=== PATIENT | female | born 1980 | race Caucasian/White ===

== ENCOUNTER 2017-06-23 10:11 | Emergency (ER) | payer SELFPAY ==
[~2017-06-23] VITALS: Ht 160 cm; Wt 90.0 kg
[~2017-06-23 10:11] MED LIST: CLIN1CAP6 PO; ZOFR4TAB3 PO
[2017-06-23 10:15] VITALS: BP 117/60; PULSE 94; RESP 15; TEMP 98.7; O2SAT 99
--- NOTE | 2017-06-27 07:49 | EL ---
cc: ЕКАТЕРИНА ROMERO MD DATE OF VISIT: 06/23/2017 DATE OF : 1980 CHIEF COMPLAINT Right middle finger swelling for four days. HISTORY OF PRESENT ILLNESS A 36-year-old female here with complaints of right middle finger infection and swelling since Tuesday. The patient states that there was some drainage coming out of her finger and some moderate to severe swelling. The swelling has significantly improved, but her finger continues to have some redness and swelling. She also reports some mild discomfort. The patient says she has been having some fevers intermittently here and there. Today she is afebrile. She has no other complaints at this time. PAST MEDICAL HISTORY Denies. ALLERGIES No known drug allergies. MEDICATION No reported meds. REVIEW OF SYSTEMS All systems reviewed and negative, except for right middle finger swelling and erythema along with intermittent fevers. VITAL SIGNS: Temperature 98.7, heart rate 94, respiratory rate 15, blood pressure 117/60, 02 sat 99%. PHYSICAL EXAMINATION GENERAL: The patient is AAO x 3, no acute distress, well-nourished, well-developed patient. SKIN: Warm and dry, no visible rashes or bruising. The right middle finger at the distal tip is edematous from the nailbed extending to the distal tip, slightly edematous, mild erythema without any significant fluid collection or fluctuance. There is a small opening with clear liquid draining. Capillary refill is normal. HEAD: Normocephalic, atraumatic. EYES: No scleral icterus. No injection or drainage. ENT: No nasal drainage noted. Mucous membranes are pink. Airway is patent. NECK: Supple. Trachea midline. No JVD. CARDIOVASCULAR: Regular rate and rhythm, S1, S2. RESPIRATORY: Breath sounds equal bilaterally. No accessory muscle use. No rhonchi, rales or wheezing. GASTROINTESTINAL: Abdomen soft, nontender, nondistended. EXTREMITIES: No cyanosis. There is mild edema to the right middle finger at the distal end. Please refer to skin exam. All digits move freely. BACK: No obvious deformity. NEURO: Grossly intact. PSYCHE: AAO x 3. Normal affect. MEDICAL DECISION MAKING Medical screen exam was completed: Yes. Emergency medical condition: Yes. Medical record reviewed: Yes. DIFFERENTIAL DIAGNOSIS Paronychia, cellulitis, less likely fracture, less likely sepsis. NARRATIVE COURSE A 36-year-old female here with complaints of right middle finger swelling for the past several days. On examination the patient appears to have a mild paronychia of her right middle finger. I will provide her with a course of antibiotics. I advised her to try warm compresses and explained if the area starts to develop a head, that she can return for incision and drainage. I explained to her at this time there is no fluid collection for drainage here in the emergency department. The patient was very understanding. I advised followup with her primary care provider. We discussed the signs of worsening infection and when to return to the emergency department. I advised her if she develops any fever, increased redness, increased swelling, drainage or streaking to return to the nearest emergency department. DIAGNOSIS Right middle finger paronychia. MEDICATIONS UPON DISCHARGE Bactrim DS one tab p.o. b.i.d. for 7 days. DISCHARGE DISPOSITION Home. CONDITION Stable. JEREMIAH Schneider /11:42 AM /7:42 AM
== END 2017-06-23 21:53 | disposition home or self-care (01) ==
LOC: NED 10:11
DX: L03.011 Cellulitis of right finger (principal)
CPT/HCPCS: 99282

== ENCOUNTER 2018-03-23 10:00 | Emergency (ER) | payer SELFPAY ==
[~2018-03-23] VITALS: Ht 160 cm; Wt 84.0 kg
[2018-03-23 10:05] VITALS: BP 120/73; PULSE 88; RESP 18; TEMP 98.2; O2SAT 98
[2018-03-23] MEDS ORDERED: ZITHTAB PO (10:26)
[2018-03-23] MEDS ORDERED: BENZ1CAP51 PO (10:26)
--- NOTE | 2018-03-23 10:27 | PD ---
HPI Chief Complaint: Cold / Flu Symptoms Time Seen by Provider: 10:16 Travel History International Travel<30 days: No Contact w/Intl Traveler<30days: No Traveled to known affect area: No History of Present Illness HPI 37-year-old female presents to the emergency department for evaluation of cough , congestion, body aches for 1 week. Patient denies any fevers or chills. No chest pain. She has no chronic medical problems and takes no prescribed medications. She reports vomiting 2 days ago, but none since. No abdominal pain. No diarrhea. No exacerbating or alleviating factors. She has tried Mucinex and DayQuil [id number] without improvement. Mild severity. PFSH Past Medical History Asthma: Yes Depression: Yes Cancer: No Cardiovascular Problems: No Cerebrovascular Accident: No Diminished Hearing: No Endocrine: No Genitourinary: No Headaches: Yes Immune Disorder: No Musculoskeletal: No Neurologic: No Psychiatric: No Reproductive: Yes (ENDOMETRIOSIS) Respiratory: Yes Triglycerides - High: No Ulcer: Yes ?: Not LMP: 03/18/18 Past Surgical History AICD: No Arteriovenous Shunt: No Insulin Pump: No Joint Replacement: No Pacemaker: No Social History Alcohol Use: No Tobacco Use: No Substance Use: No Allergies-Medications (Allergen,Severity, Reaction): Coded Allergies: No Known Allergies (Unverified Adverse Reaction, Unknown, 03/23/18) Reported Meds & Prescriptions Reported Meds & Active Scripts Active No Active Prescriptions or Reported Medications Review of Systems Except as stated in HPI: all other systems reviewed are Neg Physical Exam Narrative GENERAL: Well-nourished, well-developed female patient, afebrile. SKIN: Focused skin assessment warm/dry. HEAD: Normocephalic. Atraumatic ENT: Mucosa pink and moist. No erythema or exudates. No uvular edema. No uvular , palatal, or tonsillar deviation. Airway patent. Nasal turbinates appear normal without nasal blood, purulent drainage or septal hematoma. Bilateral tympanic membranes clear without erythema or perforation. EYES: No scleral icterus. No injection or drainage. NECK: Supple, trachea midline. No JVD or lymphadenopathy. CARDIOVASCULAR: Regular rate and rhythm without murmurs, gallops, or rubs. RESPIRATORY: Breath sounds equal bilaterally. No accessory muscle use. Lung sounds clear to auscultation. Dry cough noted GASTROINTESTINAL: Abdomen soft, non-tender, nondistended. MUSCULOSKELETAL: No cyanosis, or edema. BACK: Nontender without obvious deformity. No CVA tenderness. Data Data Last Documented VS Vital Signs Date Time Temp Pulse Resp B/P (MAP) Pulse Ox O2 Delivery O2 Flow Rate FiO2 03/23/18 10:05 98.2 88 18 120/73 (89) 98 MDM Medical Decision Making Medical Screen Exam Complete: Yes Emergency Medical Condition: Yes Medical Record Reviewed: Yes Differential Diagnosis URI versus sinusitis versus pneumonia Narrative Course 37-year-old female presents to the emergency department for evaluation of cold symptoms for 1 week. She states this is her fourth time having any symptoms. Vital signs are reassuring. Patient will be discharged prescription for azithromycin and benzonatate capsules. She is encouraged to follow-up with her primary care physician. The patient was discharged in stable condition with instructions, including return instructions and follow up instructions. Diagnosis Primary Impression: Upper respiratory infection Qualified Codes: J06.9 - Acute upper respiratory infection, unspecified Referrals: Primary Care Physician call for appointment Patient Instructions: General Instructions, Upper Respiratory Infection (ED) Departure Forms: Tests/Procedures, Work Release Enter return to work date: March 25, 2018 Additional Instructions: Take antibiotic as directed until gone. Take benzonatate capsules as directed as needed for cough. Follow-up with a primary care physician. Return to the emergency department for any acute worsening of symptoms. Med/Other Pt SpecificInfo: Prescription(s) given Scripts Benzonatate (Benzonatate) 200 Mg Cap 200 MG PO TID Y for COUGH, #21 CAP 0 Refills Prov: Alyse Gomez 03/23/18 Azithromycin (Zithromax Z-Theodore) 250 Mg Dspk 250 MG PO DIRECTED for Infection, #1 DSPK 0 Refills 500 MG (2 tabs) day 1, then 1 tab days 2-5. Prov: Alyse Gomez 03/23/18 Disposition: 01 DISCHARGE HOME Condition: Stable Alyse Gomez March 23, 2018 10:27
== END 2018-03-23 10:38 | disposition home or self-care (01) ==
LOC: NEPK 10:00
DX: J06.9 Acute upper respiratory infection, unspecified (principal); J45.909 Unspecified asthma, uncomplicated
CPT/HCPCS: 99283